=== PATIENT | male | born 2000 | race Caucasian/White ===

== ENCOUNTER 2024-10-31 19:42 | Emergency (ER) | payer OTHER, SELFPAY ==
[2024-10-31] VITALS (8 sets, daily range): BP systolic 107–134; BP diastolic 63–83; PULSE 78–128; RESP 16–23; TEMP 36.4–37.3; O2SAT 96–98; BMI 27.6
--- NOTE | 2024-10-31 19:46 | EX.ED.DYSGE1 ---
HPI History of Present Illness Chief Complaint: Seizure PFSH PFS Medical History no medical history Home Medications ?Medication ?Instructions ?Recorded ?Last Taken ?Type levetiracetam 500 mg tablet 500 mg PO BID #60 tabs 10/31/24 Unknown Rx (Keppra) Allergy/AdvReac Type Severity Reaction Status Date / Time No Known Allergies Allergy Verified 10/31/24 19:48 Family History no significant family his Surgical History no surgical history Social History Smoking Status: Never smoker EXAM Physical Exam Const Vital Signs: 10/31/24 19:44 10/31/24 20:08 10/31/24 21:00 Temperature 99.2 F H Temperature Source Oral Pulse Rate 128 H 125 H 119 H Respiratory Rate 20 H 18 23 H Blood Pressure 134/81 H 120/83 H 130/82 H Blood Pressure Mean 98 95 98 Pulse Ox 97 97 97 Oxygen Delivery Method Room Air Room Air Room Air 10/31/24 21:18 10/31/24 22:00 Temperature 97.5 F L Temperature Source Oral Pulse Rate 113 H Respiratory Rate 22 H Blood Pressure 125/80 H Blood Pressure Mean 95 Pulse Ox 98 Oxygen Delivery Method Room Air MDM MDM MDM Narrative Medical decision making narrative: HISTORY OF PRESENT ILLNESS: Chief complaint: Seizure 24-year-old male with no past medical history presents with concern for new onset seizure. Notes 3-5 minute history of seizure. He has no personal history of seizures. He noted he bit his tongue did not wet his pants. He was laying down when he started seizing. He was witnessed by his mother. She states the patient activity was similar to to another family member with seizures. The patient denies recent head trauma. Denies recent vomiting or diarrhea. Denies recent fever, neck stiffness or headache. Denies focal numbness weakness or loss of sensation. REVIEW OF SYSTEMS: Pertinent positives: Seizure Pertinent negatives: Fever, neck stiffness, vomiting, diarrhea, focal neurologic deficit PHYSICAL EXAM: Nursing triage notes reviewed, Vital signs reviewed Constitutional: please see mdm HENT: MMM, right lateral tongue biting noted Eyes: Pupils equal round and reactive to light, Extraocular muscles intact Neck: No stridor, no JVD, full neck ROM Lungs: Clear to auscultation, No wheezing or rales. No increased work of breathing, no conversational dyspnea, no accessory muscle use, no nasal flaring. No respiratory distress noted Heart: Regular rate and rhythm, No murmurs, No rubs and No gallops, 2+ distal pulses (radial, femoral, posterior tibial) in all extremities Abdomen: Soft, there is no tenderness, rigidity, rebound or guarding, no obvious peritoneal signs, no palpable pulsatile abdominal masses, no auscultated abdominal bruit : No CVAT Extremities: No edema Neuro: Alert, oriented x 3, no obvious cranial nerve deficits, no extremity ataxia, intact sensation and strength in bilateral upper and lower extremities. Skin: No rash or lesions noted MEDICAL DECISION MAKING: Chief Complaint: please see HPI External records reviewed: No prior imaging studies Factors affecting care: No personal history, family history of seizures Social determinants of health: n denies drug use History obtained from others: family Consults: Internal Medicine (Dr. Matthews) [facility] Narrative: The patient was initially tachycardic, afebrile and nontoxic-appearing. Nasal neurologic exam was intact. The patient did not appear postictal. There was tongue biting noted. I considered the following differential diagnosis: Seizure, hyponatremia, hypoglycemia, meningitis The patient's history and physical exam are consistent with bilateral meningitis. No meningeal signs. Nontoxic-appearing. No severe neck stiffness or headache. ALL IMAGES (IF OBTAINED) HAVE BEEN PERSONALLY REVIEWED AND INTERPRETED BY MYSELF. I have personally reviewed the patient's chest x-ray. Chest x-ray is unremarkable for pulmonary edema, pneumothorax, pneumonia or focal cardiopulmonary abnormality. EKG with sinus tach heart rate 113, normal axis, normal intervals, no STEMI CMP with severe hypokalemia (hemolyzed), noted anion gap metabolic acidosis likely associated with elevated lactate in the setting of new onset seizure Urinalysis shows no evidence of urinary inflammation suggestive of UTI CBC without leukocytosis, severe anemia, no thrombocytopenia. Urinalysis shows no evidence of urinary inflammation suggestive of UTI CT scan of the brain shows no evidence of ICH or mass Lactate elevated consistent with endorgan hypoperfusion likely secondary to seizure. Magnesium slightly elevated The synthesis of the patient history, physical exam, labs image suggest likely new onset seizure. The patient received a dose of IV Keppra here. Potassium was repleted with 60 mEq oral potassium and 20 mEq of IV potassium. Shared decision-making discussion was undertaken with the patient we do not have EEG available here at [facility] for the weekend given lack of resources patient will need to be transferred to a larger institution that was a better resourced. After discussing transfer the patient and family were both alert and oriented and had capacity to make her medical decisions chose to forego admission/transfer at this time and lieu of starting antiepileptic therapy with Keppra and close outpatient follow-up. Patient was signed out to p.m. physician pending potassium infusion, Keppra infusion and discharge. Keppra was written to [facility] pharmacy for meds to beds. The patient and/or family, caregivers express understanding. The patient and/or family, caregivers agrees with the plan. Shared decision making: I will have a discussion with the patient and or visitors regarding risk/benefits of further testing or admission. They will be made aware of of the risk/benefits inherent in this decision they will be given the opportunity to voice understanding. Total critical care time today provided was at least 0 minutes. This excludes separately billable procedures. Critical care time (if documented) is secondary to the patient having high probability of clinically significant/life threatening deterioration in the patient's condition which required my urgent intervention. Impression: 1. New onset seizure 2. Tachycardia 3. Hypokalemia Dispo: Admit to medicine This note was generated with [employer] dictation software. It may contain incorrect words, spelling, and punctuation that were not noted in review of the chart prior to signing. Lab Data Labs: Laboratory Results - last 24 hr 10/31/24 10/31/24 10/31/24 19:45 20:20 20:23 WBC 10.1 RBC 5.86 Hgb 17.1 H Hct 48.8 MCV 83.3 MCH 29.2 MCHC 35.0 RDW Std Deviation 39.6 RDW Coeff of Indira 13.3 Plt Count 362 MPV 9.9 Immature Gran % (Auto) 0.600 Neut % (Auto) 57.9 Lymph % (Auto) 29.3 Garrett % (Auto) 10.2 H Eos % (Auto) 1.0 Baso % (Auto) 1.0 Absolute Neuts (auto) 5.8 Absolute Lymphs (auto) 2.95 Nucleated RBC % 0 Sodium 139 Potassium 3.0 L Chloride 100 Carbon Dioxide 18.2 L Anion Gap 21 H BUN 17 Creatinine 1.06 Estim Creat Clear Calc 106.39 Est GFR (MDRD) Non-Af 101 BUN/Creatinine Ratio 15.8 Glucose 91 Lactic Acid 2.5 H* Calcium 9.8 Magnesium 2.7 H Total Bilirubin 0.65 AST 37 ALT 55 H Alkaline Phosphatase 74 Total Protein 8.0 Albumin 4.9 Globulin 3.0 Albumin/Globulin Ratio 1.6 Urine Color Urine Clarity Urine pH Ur Specific [place] Urine Protein Urine Glucose (UA) Urine Ketones Urine Occult Blood Urine Nitrite Urine Bilirubin Urine Urobilinogen Ur Leukocyte Esterase Urine RBC Urine WBC Ur Squamous Epith Cells Urine Bacteria Urine Mucus 10/31/24 20:45 WBC RBC Hgb Hct MCV MCH MCHC RDW Std Deviation RDW Coeff of Indira Plt Count MPV Immature Gran % (Auto) Neut % (Auto) Lymph % (Auto) Garrett % (Auto) Eos % (Auto) Baso % (Auto) Absolute Neuts (auto) Absolute Lymphs (auto) Nucleated RBC % Sodium Potassium Chloride Carbon Dioxide Anion Gap BUN Creatinine Estim Creat Clear Calc Est GFR (MDRD) Non-Af BUN/Creatinine Ratio Glucose Lactic Acid Calcium Magnesium Total Bilirubin AST ALT Alkaline Phosphatase Total Protein Albumin Globulin Albumin/Globulin Ratio Urine Color Straw Urine Clarity Clear Urine pH 6.0 Ur Specific [place] 1.020 Urine Protein 15 H Urine Glucose (UA) 250 H Urine Ketones Negative Urine Occult Blood Negative Urine Nitrite Negative Urine Bilirubin Negative Urine Urobilinogen Normal Ur Leukocyte Esterase Negative Urine RBC 0-5 SEEN Urine WBC 0-5 SEEN Ur Squamous Epith Cells 0-5 SEEN Urine Bacteria 0 SEEN Urine Mucus 0 SEEN Radiography Diagnostic Testing: Clinical Impression(s) from Imaging Studies Brain CT 10/31/24 20:25 IMPRESSION: No acute intracranial hemorrhage, midline shift or mass effect. If symptoms persist, further evaluation with MRI is recommended. Reading Location: [id number] Chest X-Ray 10/31/24 20:30 IMPRESSION: No acute cardiopulmonary abnormality. Reading Location: [id number] Discharge Plan Triage Chief Complaint: Seizure ED Provider: Brock Murillo Dx/Rx/DC Orders Clinical Impression: New onset seizure Instructions: ED Seizure New [facility] Adult Prescriptions: New levetiracetam [Keppra] 500 mg tablet 500 mg PO BID Qty: 60 3RF Primary Care Provider: Care Physician,No Primary Referrals: Fabian Jung MD [Non-Staff -Ordering Privileges] - Activity Restrictions/Additional Instructions: Thank you for trusting us with your care today! Your presentation is likely secondary to a new onset seizure. Please take Keppra as prescribed. Please not drive, operate heavy machinery, swim or climb as a seizure during these activities can be fatal. Please take Tylenol (2 pills, 650 mg), ibuprofen (2 pills, 400 mg) every 6 hours as needed for pain and fever control. Please return to the emergency department if your symptoms change or worsen. Specifically if you have a seizure lasting greater than 5 minutes or if you have multiple seizures without return to your neurologic baseline (awake, alert, oriented to person place and time) Please follow with Neurology for further outpatient evaluation and management. Print Language: Andorran Disposition Disposition: Home, Self Care
--- NOTE | 2024-10-31 20:16 | EKG12_ITS ---
Test Reason : DYSRHYTHMIA Blood Pressure : */* mmHG Vent. Rate : 113 BPM Atrial Rate : 113 BPM P-R Int : 148 ms QRS Dur : 86 ms QT Int : 334 ms P-R-T Axes : 44 30 21 degrees QTcB Int : 458 ms Sinus tachycardia Otherwise normal ECG Confirmed by PHOEBE DUBOSE, MATT ([id number]), primer expeditor and drier ISABEL HILL ([id number]) on 11/03/2024 8:50:48 AM Referred By: Confirmed By: MATT SANDHU MD
[2024-10-31] MEDS: 0.9% Normal Saline (1000mL) 1,000 ML 1000 ML IV (20:24)
--- NOTE | 2024-10-31 20:25 | CT_ITS ---
EXAM: CT Head Without Intravenous Contrast CLINICAL INDICATION: SEIZURE TECHNIQUE: Axial computed tomography images of the head/brain without intravenous contrast. This CT exam was performed using one or more of the following dose reduction techniques: automated exposure control, adjustment of the mA and/or kV according to patient size, and/or use of iterative reconstruction technique. COMPARISON: No relevant prior studies available. FINDINGS: BRAIN AND EXTRA-AXIAL SPACES: No acute intracranial hemorrhage, midline shift or mass effect. If symptoms persist, further evaluation with MRI is recommended. No significant white matter disease. BONES/JOINTS: Unremarkable. No acute fracture. SOFT TISSUES: Unremarkable. SINUSES: Unremarkable as visualized. No acute sinusitis. MASTOID AIR CELLS: Unremarkable as visualized. No mastoid effusion. CT/Brain/Head without Contrast IMPRESSION: No acute intracranial hemorrhage, midline shift or mass effect. If symptoms per sist, further evaluation with MRI is recommended. Reading Location: [id number]
--- NOTE | 2024-10-31 20:30 | RAD_ITS ---
PROCEDURE: CHEST 1 VIEW (PORTABLE) 10/31/2024 REASON FOR EXAM: SEIZURE RULE OUT PNEUMONIA TECHNIQUE: Frontal view of the chest. COMPARISON: None FINDINGS: Heart: The heart size is normal. Lungs: The lungs are clear. No pleural effusion. Bones: The bones are unremarkable. RAD/Chest 1 View (Portable) IMPRESSION: No acute cardiopulmonary abnormality. Reading Location: [id number]
[2024-10-31 20:47] LABS: ALB/GLOB Ratio 1.6 RATIO (0.9-2.4); AST(SGOT) 37 U/L (<=37); Alanine Aminotransfer ALT/SGPT 55 U/L (<=46); Albumin, Serum 4.9 g/dL (3.5-5.0); Alkaline Phosphatase 74 U/L (40-129); Anion Gap 21 (5-15); BUN 17 mg/dL (4-19); BUN/Creat Ratio 15.8 RATIO (10-20); Calcium,Total 9.8 mg/dL (7.6-11.0); Carbon Dioxide 18.2 mmol/L (21.0-32.0); Chloride 100 mmol/L (98-108); Creatinine, Serum 1.06 mg/dL (0.70-1.20); EST Glomerular Filtration Rate 101 (>60); Estimated Creatinine Clearance 106.39 ml/min (50-250); Glucose 91 mg/dL (70-99); Sodium Level 139 mmol/L (133-145); Total Bilirubin 0.65 mg/dL (0.00-1.30)
[2024-10-31 20:55] LABS: Bacteria 0 SEEN /hpf (None Seen); Mucous, Urine 0 SEEN /hpf (<or=2+)
[2024-10-31 20:57] LABS: Color, Urine Straw (Yellow); Glucose, Dipstick 250 mg/dl (Normal); Ketone-Dipstick Negative (Negative); Leukocyte Esterase-Dipstick Negative /ul (Negative); Nitrite-Dipstick Negative (Negative); Occult Blood-Urine Negative /ul (Negative); Protein-Dipstick 15 mg/dl (Negative); Urine Bilirubin Dipstick Negative (Negative); Urine Clarity Clear (Clear); Urine Urobilinogen Normal (Normal)
[2024-10-31 21:04] LABS: Lactic Acid 2.5 mmol/L (0.0-2.0)
[2024-10-31] MEDS: Potassium Chloride Oral Tablet 20 MEQ 60 MEQ PO (21:18)
[2024-10-31 21:21] LABS: Red Blood Cells-Urine 0-5 SEEN /hpf (0-5); White Blood Cells 0-5 SEEN /hpf (0-5)
[2024-10-31 21:22] LABS: Squamous Epithelial Cells - UA 0-5 SEEN /hpf (0-5)
[2024-10-31 22:07] LABS: Absolute Lymphocyte Count 2.95 X10^3/uL (0.83-4.51); Absolute Neutrophil Count 5.8 X10^3/uL (2.0-7.7); Hematocrit 48.8 % (40-54); Hemoglobin 17.1 g/dL (13.0-16.5); Lymphocyte # 2.95 X10^3/ul (0.83-4.51); Lymphocyte % 29.3 % (19-41); Mean Corpuscular Hgb 29.2 pg (27.0-32.0); Mean Corpuscular Volume 83.3 fL (80-94); Mean Platelet Vol. 9.9 fl (6.2-12.0); Monocyte# 1.03 X10^3/uL; Monocyte% 10.2 % (0-10); NRBC Flagged by Analyzer 0 % (0-5); Neutrophil # 5.83 X10^3/uL (2.7-7.7); Neutrophil % 57.9 % (47-70); Platelet Count 362 K/mm3 (150-450); RBC Distribution Width CV 13.3 % (11.6-14.6); RBC Distribution Width SD 39.6 fl (35.1-43.9); Red Blood Count 5.86 M/mm3 (4.6-6.2); White Blood Count 10.1 K/mm3 (4.4-11.0)
[2024-10-31] MEDS: levETIRAcetam IV 1,000 MG/100 ML BAG 400 MG IV (22:40)
[2024-10-31 22:48] LABS: Magnesium 2.7 mg/dL (1.5-2.2)
[2024-10-31] MEDS: Potassium Chloride 10mEq/100mL 10 MEQ/100 ML IV.SOLN. 100 MEQ IV BOLUS (23:00)
[2024-11-01] MEDS: Potassium Chloride 10mEq/100mL 10 MEQ/100 ML IV.SOLN. 100 MEQ IV BOLUS (00:02)
[2024-11-01 01:00] VITALS: BP 106/61; PULSE 77; RESP 18; O2SAT 95
== END 2024-11-01 01:21 | disposition home or self-care (01) ==
PROVIDERS: Emergency Provider Emergency Medicine; Visit Provider Emergency Medicine
DX: R56.9 Unspecified convulsions (principal); R00.0 Tachycardia, unspecified; E87.6 Hypokalemia; E83.41 Hypermagnesemia; E87.20 Acidosis, unspecified
CPT/HCPCS: 70450; 71045; 80048; 80053; 81001; 83605; 83735; 85025; 93005; 96361; 96365; 96366; 96367; 99285; A4216

== ENCOUNTER → 2024-12-24 | Outpatient (CLI) | payer OTHER, SELFPAY ==
[2024-12-24 13:48] LABS: AST(SGOT) 30 U/L (<=37); Alanine Aminotransfer ALT/SGPT 29 U/L (<=46); Albumin, Serum 4.4 g/dL (3.5-5.0); Alkaline Phosphatase 64 U/L (40-129); Anion Gap 12 (5-15); BUN 12 mg/dL (4-19); BUN/Creat Ratio 12.3 RATIO (10-20); Calcium,Total 9.3 mg/dL (7.6-11.0); Carbon Dioxide 23.4 mmol/L (21.0-32.0); Chloride 103 mmol/L (98-108); Globulin 2.8 g/dL (2.2-4.2); Glucose 86 mg/dL (70-99); Magnesium 2.3 mg/dL (1.5-2.2); Potassium 3.9 mmol/L (3.3-5.1)
== END | disposition home or self-care (01) ==
LOC: MTLAB 09:31
PROVIDERS: Referring Provider Psychiatry & Neurology Neurology; Visit Provider Psychiatry & Neurology Neurology
DX: G40.909 Epilepsy, unspecified, not intractable, without status epilepticus (principal)
CPT/HCPCS: 36415; 80053; 83735

== ENCOUNTER → 2025-01-05 | Outpatient (CLI) | payer OTHER, SELFPAY | END | disposition home or self-care (01) | PROVIDERS: Referring Provider Psychiatry & Neurology Neurology; Visit Provider Psychiatry & Neurology Neurology | DX: G40.909 Epilepsy, unspecified, not intractable, without status epilepticus (principal) | CPT/HCPCS: 95819 ==

== ENCOUNTER → 2025-02-02 | Outpatient (CLI) | payer SELFPAY, OTHER ==
--- NOTE | 2025-02-02 07:05 | MRI_ITS ---
PROCEDURE: BRAIN W/WO CONTRAST 02/02/2025 REASON FOR EXAM: EPILEPSY TECHNIQUE: BRAIN W/WO CONTRAST Multiplanar and multisequence images were obtained. CONTRAST: Clariscan VOLUME: 15 mL COMPARISON: CT head without contrast, 10/31/2024. FINDINGS: There is apparent mild mesial temporal sclerosis, on the right. There is no abnormal intracranial contrast enhancement. There is a normal sulcal pattern and gyral configuration. There is no evidence of acute intracranial hemorrhage or infarction. The weems-white differentiation is well preserved. There is no evidence of restricted diffusion. The ventricles and basilar cisterns are normal. There are normal flow voids demonstrated in the recognized intracranial vessels. The cerebellum and brainstem are unremarkable. The cerebellar pontine angles are normal. The craniovertebral junction is normal. The sella and suprasellar regions are normal. The orbits and retro-orbital regions are unremarkable. There is nasal septal deviation to the right. There is no significant paranasal sinus disease. The mastoid air cells are clear. There is normal bone marrow signal in the skull base and calvarium. MRI/Brain W/WO Contrast IMPRESSION: 1. There is apparent mild mesial temporal sclerosis, on the right. 2. MR imaging of the brain is otherwise unremarkable. Reading Location: [id number]
--- OUTSIDE RECORDS SUMMARY | 2025-02-02 07:10 | XMS RPT_ITS | CCD ---
Author Organization [facility] Care Team Providers Care Knock Up Assembler Name Role Phone Dr. Brock Murillo DO Emergency Provider [phone] Care Physician, No Primary Primary Care Provider Unavailable Dr. Brock Murillo DO Attending Provider [phone] Care Physician, No Primary Referring Provider Un available Erich DUBOSE, Dr. Peralta Attending Provider Erich DUBOSE, Dr. Peralta Referring Provider Fabian Jung Attending Unavailable Care Physician, No Primary Primary Care Unava ilable Care Physician, No Primary Referring Unava ilable Fabian Jung Attending Unavailable Fabian Jung Referring Unavailable Care Physician, No Primary Primary Care Unava ilable Brock Murillo Attending Unavailable Care Physician, No Primary Primary Care Unava ilable Fabian Jung Attending Unavailable Fabian Jung Referring Unavailable Care Physician, No Primary Primary Care Unava ilable Fabian Jung Attending Unavailable Fabian Jung Referring Unavailable Care Physician, No Primary Primary Care Unava ilable Medications Current Medications Medication Drug Class(es) Dates Sig (Normalized) Sig (Original) levETIRAcetam 500 mg oral tablet (7 sources) Start: 10-31-2024 End: 12-24-2024 take 1 tablet by mouth twice daily Levetiracetam (Keppra) 500 mg tablet Active 500 mg PO TWICE A DAY 60 4 December 24, 2024 9:16am Problems Problem Classification Problem Date Documented Da te Episodic/Chronic Epilepsy; convulsions (11 sources) Epilepsy; Translations: [Epilepsy, unspecified, not intractable, without status epilepticus] Onset: 01-12-2025 12-24-2024 Chronic Epilepsy; convulsions (5 sources) Seizure; Translations: [Unspecified convulsions] Onset: 11-06-2024 10-31-2024 Episodic Results Test Name Value Interpretation Reference Range Facility Anion gap in Serum or Plasma Ordered By: Fabian Jung on 12-24-2024 Anion gap [Moles/Vol] 12 mmol/L 5-15 [facility] BUN/creatinine ratioOrdered By: Fabian Jung on 12-24-2024 Urea nitrogen/Creatinine [Mass ratio] 12.3 mg/mg 10-20 [facility] Bilirubin, totalOrdered By: Fabian Jung on 12-24-2024 Bilirubin [Mass/Vol] 0.94 mg/dL 0.00-1.30 [facility] Carbon dioxide, total [Moles /volume] in Central venous bloodOrdered By: Fabian Jung on 12-24-2024 CO2 [Moles/Vol] 23.4 mmol/L 21.0-32.0 [facility] Chloride assayOrdered By: Ra brando Jung on 12-24-2024 Chloride [Moles/Vol] 103 mmol/L 98-108 [facility] Comprehensive Metabolic Prof ilon 12-24-2024 Albumin [Mass/Vol] 4.4 g/dL Normal 3.5-5.0 [facility] Comment on above: Performed By: #### L 501.5200, L500.4050 #### [facility] [address] [place], [address] Albumin/Globulin [Mass ratio] 1.6 {ratio} Normal 0.9-2.4 [facility] Comment on above: Performed By: #### L 501.5200, L500.4050 #### [facility] [address] [place], [address] ALK PHOS 64 U/L Normal 40-129 [facility] Comment on above: Performed By: #### L 501.5200, L500.4050 #### [facility] [address] [place], [address] ALT [Catalytic activity/Vol] 29 U/L Normal <=46 [facility] Comment on above: Performed By: #### L 501.5200, L500.4050 #### [facility] [address] [place], [address] AST [Catalytic activity/Vol] 30 U/L Normal <=37 [facility] Comment on above: Performed By: #### L 501.5200, L500.4050 #### [facility] [address] [place], [address] Bilirubin [Mass/Vol] 0.94 mg/dL Normal 0.00-1.30 [facility] Comment on above: Performed By: #### L 501.5200, L500.4050 #### [facility] [address] [place], [address] BUN/CRE 12.3 RATIO Normal 10-20 [facility] Comment on above: Performed By: #### L 501.5200, L500.4050 #### [facility] [address] [place], [address] Calcium [Mass/Vol] 9.3 mg/dL Normal 7.6-11.0 [facility] Comment on above: Performed By: #### L 501.5200, L500.4050 #### [facility] [address] [place], [address] Chloride [Moles/Vol] 103 mmol/L Normal 98-108 [facility] Comment on above: Performed By: #### L 501.5200, L500.4050 #### [facility] [address] [place], [address] CO2 [Moles/Vol] 23.4 mmol/L Normal 21.0-32.0 [facility] Comment on above: Performed By: #### L 501.5200, L500.4050 #### [facility] [address] [place], [address] Creatinine [Mass/Vol] 1.01 mg/dL Normal 0.70-1.20 [facility] Comment on above: Performed By: #### L 501.5200, L500.4050 #### [facility] [address] [place], [address] GAP 12 Normal 5-15 [facility] Comment on above: Performed By: #### L 501.5200, L500.4050 #### [facility] [address] [place], [address] GFR/1.73 sq M.predicted among non-blacks MDRD (S/P/Bld) [Vol rate/Area] 107 mL/min/{1.73_m2} Normal >60 [facility] Comment on above: Result Comment: mL/m in/1.73m2 CKD-EPI Creatinine Equation (2020) Performed By: #### L 501.5200, L500.4050 #### [facility] [address] [place], [address] Globulin (S) [Mass/Vol] 2.8 g/dL Normal 2.2-4.2 [facility] Comment on above: Performed By: #### L 501.5200, L500.4050 #### [facility] [address] [place], [address] Glucose [Mass/Vol] 86 mg/dL Normal 70-99 [facility] Comment on above: Performed By: #### L 501.5200, L500.4050 #### [facility] [address] [place], [address] Potassium [Moles/Vol] 3.9 mmol/L Normal 3.3-5.1 [facility] Comment on above: Performed By: #### L 501.5200, L500.4050 #### [facility] [address] [place], [address] Sodium [Moles/Vol] 139 mmol/L Normal 133-145 [facility] Comment on above: Performed By: #### L 501.5200, L500.4050 #### [facility] [address] [place], [address] T PROT 7.2 g/dL Normal 5.9-8.4 [facility] Comment on above: Performed By: #### L 501.5200, L500.4050 #### [facility] [address] [place], [address] Urea nitrogen [Mass/Vol] 12 mg/dL Normal 4-19 [facility] Comment on above: Performed By: #### L 501.5200, L500.4050 #### [facility] [address] [place], [address] Glomerular filtration rate ( GFR) estimation/1.73 sq m using serum, plasma, or whole bOrdered By: Fabian Jung on 12-24-2024 GFR/1.73 sq M.predicted among non-blacks MDRD (S/P/Bld) [Vol rate/Area] 107 mL/min/{1.73_m2} >60 [facility] Comment on above: mL/min/1.73m2 CKD-EP I Creatinine Equation (2020) Laboratory - Chemistry and C hemistry - challengeOrdered By: Fabian Jung on 12-24-2024 AST [Catalytic activity/Vol] 30 U/L <38 [facility] Magnesiumon 12-24-2024 Magnesium [Mass/Vol] 2.3 mg/dL High 1.5-2.2 [facility] Comment on above: Performed By: #### L 501.5200, L500.4050 ####[facility] [address] [place], [address] Magnesium measurement (mass/ volume)Ordered By: Fabian Jung on 12-24-2024 Magnesium (Unsp spec) [Mass/Vol] 2.3 mg/dL High 1.5-2.2 [facility] Neurology Visit Reporton Neurology Visit Report [facility] [address], [address] [place] [address] OFFICE VISIT Date of Service: 12/24/24 MR#: [id number] Acct: [id number] Name: MALVIN DOUGLAS Rep #: [id number] : 2000 Provider: Dr. Fabian aguero MD Age/Sex: 24/M Location: [facility]. Status: Signed HPI HPI Chief Complaint: Establish Care Details: History: The patient is a 24-year-old right-handed male without significant past medical history who presents for evaluation of a seizure. He is accompanied by his mother. On 10/31/2024 he had a witnessed generalized clonic seizure. He was sitting when the seizure began. He then noted that he was unable to talk and felt that his eyes were twitching and he felt his arms began to contract and shake. He then lost consciousness and exhibited generalized clonic activity lasting about 2 minutes. He then had postictal confusion and lethargy. He had associated tongue biting. He did not have associated urinary incontinence. He denied having associated headache, chest pain, or shortness of breath. He had mowed the lawn earlier that day and was tired and may have been dehydrated. He was not sleep deprived from the night prior. He did not have any febrile illness at that time. He does not have any history of seizure prior to October 2024 and has had no further seizures since the seizure on 10/31/2024. He was seen in the emergency room. His potassium level was low and his magnesium level was high at the time of his hospital evaluation. Levetiracetam 500 mg twice daily was initiated. He is tolerating this well. He does not have any history of [employer] infection, concussion or significant history. Past Medical History: As above. There is no history of hypertension, diabetes mellitus, heart disease, lung disease, stroke, seizure, thyroid disease, cancer, renal disease, sleep apnea, or hyperlipidemia. Social History: He infrequently smoked tobacco (greater than 1 year ago. There is no history of alcohol abuse. There is no history of illicit drug use. Family History: 2 of the patient's 4 brothers have seizures. The patient's only sister has seizures. There is no family history of cerebral aneurysm or stroke. Review of Systems: As above. The patient has not had any recent fever, rash, weight change, chest pain, shortness of breath, or gastrointestinal problems. He has urinary frequency during the day and occasional nocturnal enuresis. Physical Exam: General: Well-developed, well-nourished male in no acute distress. Neuro: The patient is awake and alert and responds appropriately; speech is fluent; language function is within normal limits Cranial nerves: PERRL, 3mm bilaterally; EOMI; visual joshi are full; visual acuity is 20/20 bilaterally; face is symmetrical; tongue is midline Cerebellar system: No nystagmus or dysmetria Deep tendon reflexes: +1 at the knees and ankles and absent at the biceps bilaterally, triceps bilaterally and brachioradialis bilaterally; plantar responses are downward bilaterally Motor: Strength 5/5 in the biceps bilaterally, abductor pollicis brevis muscles bilaterally, first dorsal interosseous muscles bilaterally, quadriceps bilaterally and foot dorsiflexors bilaterally; no drift Sensory: There are no deficits to soft touch or vibration Gait: Unremarkable HEENT: Normocephalic; atraumatic; tympanic membranes are clear Neck: No bruits Heart: Regular rhythm and rate Extremities: No cyanosis or edema; dorsalis pedis pulses are +2 bilaterally Supplemental Info CBC, magnesium, lactic acid, CMP (10/31/2024): Hemoglobin 17.1 (high), potassium 3.0 (low), bicarb 18.2 (low), lactic acid 2.5 (high), magnesium 2.7 (high), ALT 55 (high) Head CT (10/31/2024): FINDINGS: BRAIN AND EXTRA-AXIAL SPACES: No acute intracranial hemorrhage, midline shift or mass effect. If symptoms persist, further evaluation with MRI is recommended. No significant white matter disease. BONES/JOINTS: Unremarkable. No acute fracture. SOFT TISSUES: Unremarkable. SINUSES: Unremarkable as visualized. No acute sinusitis. MASTOID AIR CELLS: Unremarkable as visualized. No mastoid effusion. IMPRESSION: No acute intracranial hemorrhage, midline shift or mass effect. If symptoms persist, further evaluation with MRI is recommended. These images were reviewed on 12/24/2024. Chest x-ray (10/31/2024): No acute cardiopulmonary abnormality. EKG (10/31/2024): Sinus tachycardia (ventricular rate 113 bpm). Otherwise normal EKG. Assessment and Plan Assessment and Plan (1) Seizure disorder: Plan: The patient had a single generalized clonic seizure of focal onset on 10/31/2024. He does not have any history of prior seizure. He has had no further seizures since his seizure on 10/31/2024. He was fatigued and may have been dehydrated just prior to the seizure. He was seen in the emergency room. His head CT was normal. His (more content not included)... Normal [facility] Potassium measurement (mass/ volume)Ordered By: Fabian Jung on 12-24-2024 Potassium (Unsp spec) [Mass/Vol] 3.9 mmol/L 3.3-5.1 [facility] Serum creatinine measurement (mass/volume)Ordered By: Fabian Jung on 12-24-2024 Creatinine [Mass/Vol] 1.01 mg/dL 0.70-1.20 [facility] Serum globulin measurementOr dered By: Fabian Jung on 12-24-2024 Globulin (S) [Mass/Vol] 2.8 g/dL 2.2-4.2 [facility] Serum glucose measurement (m ass/volume)Ordered By: Fabian Jung on 12-24-2024 Glucose [Mass/Vol] 86 mg/dL 70-99 [facility] Serum or plasma alanine dean otransferase (ALT) measurementOrdered By: Fabian Jung on 12-24-2024 ALT [Catalytic activity/Vol] 29 U/L <47 [facility] Serum or plasma albumin prabha urement (mass/volume)Ordered By: Fabian Jung on 12-24-2024 Albumin [Mass/Vol] 4.4 g/dL 3.5-5.0 [facility] Serum or plasma albumin/glob ulin mass ratioOrdered By: Fabian Jung on 12-24-2024 Albumin/Globulin [Mass ratio] 1.6 {ratio} 0.9-2.4 [facility] Serum or plasma alkaline shannon sphatase measurementOrdered By: Fabian Jung on 12-24-2024 ALP [Catalytic activity/Vol] 64 U/L 40-129 [facility] Serum or plasma calcium prabha urement (mass/volume)Ordered By: Fabian Jung on 12-24-2024 Calcium [Mass/Vol] 9.3 mg/dL 7.6-11.0 [facility] Serum or plasma urea nitroge n measurement (mass/volume)Ordered By: Fabian Patelblas on 12-24-2024 Urea nitrogen [Mass/Vol] 12 mg/dL 4-19 [facility] Sodium levelOrdered By: Pool Patelblas on 12-24-2024 Sodium [Moles/Vol] 139 mmol/L 133-145 [facility] Total proteinOrdered By: Wally argueta Erich on 12-24-2024 Protein [Mass/Vol] 7.2 g/dL 5.9-8.4 [facility] 12 Lead EKGon 10-31-2024 12 Lead EKG [facility] [address] [place] [address] 12 Lead EKG 10/31/242039 MR#: [id number] Acct: [id number] Name: MALVIN DOUGLAS Rep #: [id number] : 2000 24 From: Oscar Farias MD Attending Dr: Status: DEP ER Ordering Dr: Brock Murillo DO Date: 10/31/24 Location: ED Sex: M C Admitted: Test Reason : DYSRHYTHMIA Blood Pressure : */* mmHG Vent. Rate : 113 BPM Atrial Rate : 113 BPM P-R Int : 148 ms QRS Dur : 86 ms QT Int : 334 ms P-R-T Axes : 44 30 21 degrees QTcB Int : 458 ms Sinus tachycardia Otherwise normal ECG Confirmed by OSCAR FARIAS MD ([id number]), script editor ISABEL HILL ([id number]) on 11/03/2024 8:50:48 AM Referred By: Confirmed By: OSCAR FARIAS MD 11/03/24 0850 Date Oscar Farias MD CC: Dr. Brock Murillo, DO; No Primary Care Physician Signed Normal [facility] Absolute lymphocyte countOrd ered By: Brock Murillo on 10-31-2024 Lymphocytes Auto (Unsp spec) [#/Vol] 2.95 10*3/uL 0.83-4.51 [facility] Absolute neutrophil countOrd ered By: Brock Murillo on 10-31-2024 Neutrophils (Bld) [#/Vol] 5.8 10*3/uL 2.0-7.7 [facility] Anion gap in Serum or Plasma Ordered By: Brock Murillo on 10-31-2024 Anion gap [Moles/Vol] 21 mmol/L High 5- [facility] Automated lymphocyte count a s percentage of total leukocytesOrdered By: Brock Murillo on 10-31-2024 Lymphocytes/100 WBC Auto (Unsp spec) 29.3 % - [facility] BUN/creatinine ratioOrdered By: Brock Murillo on 10-31-2024 Urea nitrogen/Creatinine [Mass ratio] 15.8 mg/mg - [facility] Basic Metabolic Profile (BMP )on 10-31-2024 BUN/CRE 15.8 RATIO Normal - [facility] Comment on above: Performed By: #### L 500.4050, L500.2500, L503.6005 #### [facility] [address] [place], [address] Calcium [Mass/Vol] 9.8 mg/dL Normal 7.6-11.0 [facility] Comment on above: Performed By: #### L 500.4050, L500.2500, L503.6005 #### [facility] [address] [place], [address] Chloride [Moles/Vol] 100 mmol/L Normal 98-108 [facility] Comment on above: Performed By: #### L 500.4050, L500.2500, L503.6005 #### [facility] [address] [place], [address] CO2 [Moles/Vol] 18.2 mmol/L Low 21.0-32.0 [facility] Comment on above: Performed By: #### L 500.4050, L500.2500, L503.6005 #### [facility] [address] [place], [address] Creatinine [Mass/Vol] 1.06 mg/dL Normal 0.70-1.20 [facility] Comment on above: Performed By: #### L 500.4050, L500.2500, L503.6005 #### [facility] [address] [place], [address] ECRCL 106.39 ml/min Normal 50-250 [facility] Comment on above: Performed By: #### L 500.4050, L500.2500, L503.6005 #### [facility] [address] [place], [address] GAP 21 High 5-15 [facility] Comment on above: Performed By: #### L 500.4050, L500.2500, L503.6005 #### [facility] [address] [place], [address] GFR/1.73 sq M.predicted among non-blacks MDRD (S/P/Bld) [Vol rate/Area] 101 mL/min/{1.73_m2} Normal >60 [facility] Comment on above: Result Comment: mL/m in/1.73m2 CKD-EPI Creatinine Equation (2020) Performed By: #### L 500.4050, L500.2500, L503.6005 #### [facility] [address] [place], [address] Glucose [Mass/Vol] 91 mg/dL Normal 70-99 [facility] Comment on above: Performed By: #### L 500.4050, L500.2500, L503.6005 #### [facility] [address] [place], [address] Potassium [Moles/Vol] 3.0 mmol/L Low 3.3-5.1 [facility] Comment on above: Result Comment: Hemo lysis present, Results??could be affected. ?? Performed By: #### L 500.4050, L500.2500, L503.6005 #### [facility] [address] [place], [address] Sodium [Moles/Vol] 139 mmol/L Normal 133-145 [facility] Comment on above: Performed By: #### L 500.4050, L500.2500, L503.6005 #### [facility] [address] [place], [address] Urea nitrogen [Mass/Vol] 17 mg/dL Normal 4-19 [facility] Comment on above: Performed By: #### L 500.4050, L500.2500, L503.6005 #### [facility] [address] [place], [address] Basophil percentageOrdered B y: Brock Murillo on 10-31-2024 Basophils/100 WBC (Bld) 1.0 % 0-1 [facility] Bilirubin Test strip Ql (U)O rdered By: Brock Murillo on 10-31-2024 Bilirubin Ql (U) Negative Negative [facility] Bilirubin, totalOrdered By: Brock Murillo on 10-31-2024 Bilirubin [Mass/Vol] 0.65 mg/dL 0.00-1.30 [facility] Brain/Head without Contrasto n 10-31-2024 Brain/Head without Contrast [facility] Services [address] [place] [address] Brain/Head without Contrast MR#: [id number] Acct: [id number] Name: STELLAMALVIN Ruslan Rep #: [id number] : 2000 M 24 From: Brenton Sifuentes MD PCP: Care Physician,No Primary Status: REG ER Study: Brain/Head without Contrast Date of Exam: 10/16 12/10 Exam# [id number] Ordering Dr: Brock Murillo DO EXAM: CT Head Without Intravenous Contrast CLINICAL INDICATION: SEIZURE TECHNIQUE: Axial computed tomography images of the head/brain without intravenous contrast. This CT exam was performed using one or more of the following dose reduction techniques: automated exposure control, adjustment of the mA and/or kV according to patient size, and/or use of iterative reconstruction technique. COMPARISON: No relevant prior studies available. FINDINGS: BRAIN AND EXTRA-AXIAL SPACES: No acute intracranial hemorrhage, midline shift or mass effect. If symptoms persist, further evaluation with MRI is recommended. No significant white matter disease. BONES/JOINTS: Unremarkable. No acute fracture. SOFT TISSUES: Unremarkable. SINUSES: Unremarkable as visualized. No acute sinusitis. MASTOID AIR CELLS: Unremarkable as visualized. No mastoid effusion. CT/Brain/Head without Contrast IMPRESSION: No acute intracranial hemorrhage, midline shift or mass effect. If symptoms persist, further evaluation with MRI is recommended. Reading Location: [facility] CC: Dr. Brock Murillo, ; No Primary Care Physician Equipment Service Engineer: Signed Normal [facility] CBC W/Diff, Automatedon 05 Absolute Lymph 2.95 X10 3/uL Normal 0.83-4.51 [facility] Comment on above: Performed By: #### L 100.0100 #### [facility] [address] [place], [address] Absolute Neut 5.8 X10 3/uL Normal 2.0-7.7 [facility] Comment on above: Performed By: #### L 100.0100 #### [facility] [address] [place], [address] Basophils/100 WBC (Bld) 1.0 % Normal 0-1 [facility] Comment on above: Performed By: #### L 100.0100 #### [facility] [address] [place], [address] Eosinophils/100 WBC (Bld) 1.0 % Normal 0-5 [facility] Comment on above: Performed By: #### L 100.0100 #### [facility] [address] [place], [address] Erythrocyte distribution width (RBC) [Ratio] 13.3 % Normal 11.6-14.6 [facility] Comment on above: Performed By: #### L 100.0100 #### [facility] [address] [place], [address] Hematocrit (Bld) [Volume fraction] 48.8 % Normal 40-54 [facility] Comment on above: Performed By: #### L 100.0100 #### [facility] [address] [place], [address] Hemoglobin (Bld) [Mass/Vol] 17.1 g/dL High 13.0-16.5 [facility] Comment on above: Performed By: #### L 100.0100 #### [facility] [address] [place], [address] IG% 0.600 Normal 0.0-0.9 [facility] Comment on above: Result Comment: IG% - Immature Granulocytes (promyelocytes, myelocytes and metamyelocytes) > 1% indicates that a LEFT SHIFT is Present. Performed By: #### L 100.0100 #### [facility] [address] [place], [address] Lymphocytes/100 WBC (Bld) 29.3 % Normal 19-41 [facility] Comment on above: Performed By: #### L 100.0100 #### [facility] [address] [place], [address] MCH (RBC) [Entitic mass] 29.2 pg Normal 27.0-32.0 [facility] Comment on above: Performed By: #### L 100.0100 #### [facility] [address] [place], [address] MCHC (RBC) [Mass/Vol] 35.0 g/dL Normal 32-36 [facility] Comment on above: Performed By: #### L 100.0100 #### [facility] [address] [place], [address] MCV (RBC) [Entitic vol] 83.3 fL Normal 80-94 [facility] Comment on above: Performed By: #### L 100.0100 #### [facility] [address] [place], [address] Monocytes/100 WBC (Bld) 10.2 % High 0-10 [facility] Comment on above: Performed By: #### L 100.0100 #### [facility] [address] [place], [address] Neutrophils/100 WBC (Bld) 57.9 % Normal 47-70 [facility] Comment on above: Performed By: #### L 100.0100 #### [facility] [address] [place], [address] Nucleated RBC (Bld) [#/Vol] 0 10*3/uL Normal 0-5 [facility] Comment on above: Performed By: #### L 100.0100 #### [facility] [address] [place], [address] Platelet mean volume (Bld) [Entitic vol] 9.9 fL Normal 6.2-12.0 [facility] Comment on above: Performed By: #### L 100.0100 #### [facility] [address] [place], [address] Platelets (Bld) [#/Vol] 362 10*3/uL Normal 150-450 [facility] Comment on above: Performed By: #### L 100.0100 #### [facility] [address] [place], [address] RBC (Bld) [#/Vol] 5.86 10*6/uL Normal 4.6-6.2 [facility] [facility] Comment on above: Performed By: #### L 100.0100 #### [facility] [address] [place], [address] RDW SD 39.6 fl Normal 35.1-43.9 [facility] Comment on above: Performed By: #### L 100.0100 #### [facility] [address] [place], [address] WBC (Bld) [#/Vol] 10.1 10*3/uL Normal 4.4-11.0 [facility] Comment on above: Performed By: #### L 100.0100 #### [facility] [address] [place], [address] Carbon dioxide, total [Moles /volume] in Central venous bloodOrdered By: Brock Murillo on 10-31-2024 CO2 [Moles/Vol] 18.2 mmol/L Low 21.0-32.0 [facility] Chest 1 View (Portable)on Chest 1 View (Portable) [facility] Imaging Services [address] [place] [address] Chest 1 View (Portable) MR#: [id number] Acct: [id number] Name: MALVIN DOUGLAS Rep #: [id number] : 2000 M 24 From: Ryan Green MD PCP: Care Physician,No Primary Status: [facility] ER Study: Chest 1 View (Portable) Date of Exam: 10/31/24 Exam# [id number] Ordering Dr: Brock Murillo DO PROCEDURE: CHEST 1 VIEW (PORTABLE) 10/31/2024 REASON FOR EXAM: SEIZURE RULE OUT PNEUMONIA TECHNIQUE: Frontal view of the chest. COMPARISON: None FINDINGS: Heart: The heart size is normal. Lungs: The lungs are clear. No pleural effusion. Bones: The bones are unremarkable. RAD/Chest 1 View (Portable) IMPRESSION: No acute cardiopulmonary abnormality. Reading Location: [id number] CC: Dr. Brock Chidi, DO; No Primary Care Physician Equipment Service Engineer: Signed Normal [facility] Chloride assayOrdered By: Rafael Murillo on 10-31-2024 Chloride [Moles/Vol] 100 mmol/L 98-108 [facility] Comprehensive Metabolic Prof ilon 10-31-2024 Albumin [Mass/Vol] 4.9 g/dL Normal 3.5-5.0 [facility] Comment on above: Performed By: #### L 500.4050, L500.2500, L503.6005 #### [facility] [address] [place], [address] Albumin/Globulin [Mass ratio] 1.6 {ratio} Normal 0.9-2.4 [facility] Comment on above: Performed By: #### L 500.4050, L500.2500, L503.6005 #### [facility] [address] [place], [address] ALK PHOS 74 U/L Normal 40-129 [facility] Comment on above: Performed By: #### L 500.4050, L500.2500, L503.6005 #### [facility] [address] [place], [address] ALT [Catalytic activity/Vol] 55 U/L High <=46 [facility] Comment on above: Performed By: #### L 500.4050, L500.2500, L503.6005 #### [facility] [address] [place], [address] AST [Catalytic activity/Vol] 37 U/L Normal <=37 [facility] Comment on above: Result Comment: Hemo lysis present, Results??could be affected. ?? Performed By: #### L 500.4050, L500.2500, L503.6005 #### [facility] [address] [place], [address] Bilirubin [Mass/Vol] 0.65 mg/dL Normal 0.00-1.30 [facility] Comment on above: Performed By: #### L 500.4050, L500.2500, L503.6005 #### [facility] [address] [place], [address] Globulin (S) [Mass/Vol] 3.0 g/dL Normal 2.2-4.2 [facility] Comment on above: Performed By: #### L 500.4050, L500.2500, L503.6005 #### [facility] [address] [place], [address] T PROT 8.0 g/dL Normal 5.9-8.4 [facility] Comment on above: Performed By: #### L 500.4050, L500.2500, L503.6005 #### [facility] [address] [place], [address] Emergency Department Summary on 10-31-2024 Emergency Department Summary [facility] Medical Records Department [address] [place] [address] Emergency Department Summary 10/31/24 MR#: [id number] Acct: [id number] Name: MALVIN DOUGLAS Rep #: [id number] : 2000 24 From: Brock Murillo DO PCP: Care Physician,No Primary Status:REG ER Location: ED ADDENDUM by Dr. Brock Murillo DO on 10/31/24 at 2309 Final disposition: Discharge home 10/31/24 230 Cosigner Signature (if applicable): cc: No Primary Care Physician * Signed HPI History of Present Illness Chief Complaint: Seizure PFSH PFSH Medical History no medical history Home Medications ???Medication ???Instructions ???Recorded ???Last Taken ???Type levetiracetam 500 mg tablet 500 mg PO BID #60 tabs 10/31/24 Un known Rx (Keppra) Allergy/AdvReac Type Severity Reaction Status Date / Time No Known Allergies Allergy Verified 10/31/24 19:48 Family History no significant family his Surgical History no surgical history Social History Smoking Status: Never smoker EXAM Physical Exam Const Vital Signs: 10/31/24 19:44 10/31/24 20:08 10/31/24 21:00 Temperature 99.2 F H Temperature Source Oral Pulse Rate 128 H 125 H 119 H Respiratory Rate 20 H 18 23 H Blood Pressure 134/81 H 120/83 H 130/82 H Blood Pressure Mean 98 95 98 Pulse Ox 97 97 97 Oxygen Delivery Method Room Air Room Air Room Air 10/31/24 21:18 10/31/24 22:00 Temperature 97.5 F L Temperature Source Oral Pulse Rate 113 H Respiratory Rate 22 H Blood Pressure 125/80 H Blood Pressure Mean 95 Pulse Ox 98 Oxygen Delivery Method Room Air MDM MDM MDM Narrative Medical decision making narrative: HISTORY OF PRESENT ILLNESS: Chief complaint: Seizure 24-year-old male with no past medical history presents with concern for new onset seizure. Notes 3- 5 minute history of seizure. He has no personal history of seizures. He noted he bit his tongue did not wet his pants. He was laying down when he started seizing. He was witnessed by his mother. She states the patient activity was similar to to another family member with seizures. The patient denies recent head trauma. Denies recent vomiting or diarrhea. Denies recent fever, neck stiffness or headache. Denies focal numbness weakness or loss of sensation. REVIEW OF SYSTEMS: Pertinent positives: Seizure Pertinent negatives: Fever, neck stiffness, vomiting, diarrhea, focal neurologic deficit PHYSICAL EXAM: Nursing triage notes reviewed, Vital signs reviewed Constitutional: please see mdm HENT: MMM, right lateral tongue biting noted Eyes: Pupils equal round and reactive to light, Extraocular muscles intact Neck: No stridor, no JVD, full neck ROM Lungs: Clear to auscultation, No wheezing or rales. No increased work of breathing, no conversational dyspnea, no accessory muscle use, no nasal flaring. No respiratory distress noted Heart: Regular rate and rhythm, No murmurs, No rubs and No gallops, 2+ distal pulses (radial, femoral, posterior tibial) in all extremities Abdomen: Soft, there is no tenderness, rigidity, rebound or guarding, no obvious peritoneal signs, no palpable pulsatile abdominal masses, no auscultated abdominal bruit : No CVAT Extremities: No edema Neuro: Alert, oriented x 3, no obvious cranial nerve deficits, no extremity ataxia, intact sensation and strength in bilateral upper and lower extremities. Skin: No rash or lesions noted MEDICAL DECISION MAKING: Chief Complaint: please see HPI External records reviewed: No prior imaging studies Factors affecting care: No personal history, family history of seizures Social determinants of health: n denies drug use History obtained from others: family Consults: Internal Medicine (Dr. Matthews) MDM Narrative: The patient was initially tachycardic, afebrile and nontoxic-appearing. Nasal neurologic exam was intact. The patient did not appear postictal. There was tongue biting noted. I considered the following differential diagnosis: Seizure, hyponatremia, hypoglycemia, meningitis The patient's history and physical exam are consistent with bilateral meningitis. No meningeal signs. Nontoxic-appearing. No severe neck stiffness or headache. ALL IMAGES (IF OBTAINED) HAVE BEEN PERSONALLY REVIEWED AND INTERPRETED BY MYSELF. I have personally reviewed the patient's chest x-ray. Chest x-ray is unremarkable for pulmonary edema, pneumothorax, pneumonia or focal cardiopulmonary abnormality. EKG with sinus tach heart rate 113, normal axis, normal intervals, no STEMI CMP with severe hypokalemia (hemolyzed), noted anion gap metabolic acidosis likely associated with elevated lactate in the setting of new onset seizure U (more content not included)... Normal [facility] Eosinophil percentageOrdered By: Brock Murillo on 10-31-2024 Eosinophils/100 WBC (Bld) 1.0 % 0-5 [facility] Erythrocyte distribution wid th ratioOrdered By: Brock Murillo on 10-31-2024 Erythrocyte distribution width (RBC) [Ratio] 13.3 % 11.6-14.6 [facility] Erythrocyte distribution wid th standard deviationOrdered By: Brock Murillo on 10-31-2024 Erythrocyte distribution width (RBC) [Ratio] 39.6 fl 35.1-43.9 [facility] Glomerular filtration rate ( GFR) estimation/1.73 sq m using serum, plasma, or whole bOrdered By: Brock Murillo on 10-31-2024 GFR/1.73 sq M.predicted among non-blacks MDRD (S/P/Bld) [Vol rate/Area] 101 mL/min/{1.73_m2} >60 [facility] Comment on above: mL/min/1.73m2 CKD-EP I Creatinine Equation (2020) Hematocrit Auto (Bld) [Volum e fraction]Ordered By: Brock Murillo on 10-31-2024 Hematocrit (Bld) [Volume fraction] 48.8 % 40-54 [facility] Hemoglobin measurementOrdere d By: Brock Murillo on 10-31-2024 Hemoglobin (Bld) [Mass/Vol] 17.1 g/dL High 13.0-16.5 [facility] Immature granulocytes/100 WB C Auto (Bld)Ordered By: Brock Murillo on 10-31-2024 Immature granulocytes/100 WBC (Bld) 0.600 % 0.0-0.9 [facility] Comment on above: IG% - Immature Granu locytes (promyelocytes, myelocytes and metamyelocytes) > 1% indicates that a LEFT SHIFT is Present. Ketones Test strip Ql (U)Ord ered By: Brock Murillo on 10-31-2024 Ketones Ql (U) Negative Negative [facility] - Chemistry and C hemistry - challengeOrdered By: Brock Murillo on 10-31-2024 AST [Catalytic activity/Vol] 37 U/L <38 [facility] Comment on above: Hemolysis present, R esults could be affected. Lactic Acidon 10-31-2024 Lactate [Moles/Vol] 2.5 mmol/L Invalid Interpretation Code 0.0-2.0 [facility] Comment on above: Order Comment: Y Result Comment: Crit ical Result(s) Called at: 2102 by:??SHILPA COTTER Results read back by same. Performed By: #### L 500.4050, L500.2500, L503.6005 #### [facility] [address] [place], [address] Lactic acid measurementOrder ed By: Brock Murillo on 10-31-2024 Lactate [Moles/Vol] 2.5 mmol/L High 0.0-2.0 [facility] Comment on above: Critical Result(s) C alled at: 2102 by: SHILPA COTTER Results read back by same. MCV (mean corpuscular volume ) determinationOrdered By: Brock Murillo on 10-31-2024 MCV (RBC) [Entitic vol] 83.3 fL 80-94 [facility] Magnesiumon 10-31-2024 Magnesium [Mass/Vol] 2.7 mg/dL High 1.5-2.2 [facility] Comment on above: Performed By: #### L 501.5200 ####[facility] [address] [place], [place], [id number] Magnesium measurement (mass/ volume)Ordered By: Brock Murillo on 10-31-2024 Magnesium (Unsp spec) [Mass/Vol] 2.7 mg/dL High 1.5-2.2 [facility] Mean corpuscular hemoglobin (MCH) determinationOrdered By: Brock Murillo on 10-31-2024 MCH (RBC) [Entitic mass] 29.2 pg 27.0-32.0 [facility] Mean corpuscular hemoglobin concentration (MCHC) determinationOrdered By: Brock Murillo on 10-31-2024 MCHC (RBC) [Mass/Vol] 35.0 g/dL 32-36 [facility] Mean platelet volume determi nationOrdered By: Brock Murillo on 10-31-2024 Platelet mean volume (Bld) [Entitic vol] 9.9 fL 6.2-12.0 [facility] Microscopic analysis of urin e for red blood cells (RBC)Ordered By: Brock Murillo on 10-31-2024 Microscopic analysis of urine for red blood cells (RBC) 0-5 SEEN /hpf 0-5 [facility] Monocyte percentageOrdered B y: Brock Murillo on 10-31-2024 Monocytes/100 WBC (Bld) 10.2 % High 0-10 [facility] Mucus LM Ql (Urine sed)Order ed By: Brock Murillo on 10-31-2024 Mucus Ql (Urine sed) 0 SEEN /hpf [facility] Neutrophil percentageOrdered By: Brock Murillo on 10-31-2024 Neutrophils/100 WBC (Bld) 57.9 % 47-70 [facility] Nitrite Test strip Ql (U)Ord ered By: Brock Murillo on 10-31-2024 Nitrite Ql (U) Negative Negative [facility] Nucleated red blood cell per centageOrdered By: Brock Murillo on 10-31-2024 Nucleated RBC/100 WBC (Bld) [Ratio] 0 % 0-5 [facility] Platelet countOrdered By: Rafael Murillo on 10-31-2024 Platelets (Bld) [#/Vol] 362 10*3/uL 150-450 [facility] Potassium measurement (mass/ volume)Ordered By: Brock Murillo on 10-31-2024 Potassium (Unsp spec) [Mass/Vol] 3.0 mmol/L Low 3.3-5.1 [facility] Comment on above: Hemolysis present, R esults could be affected. Protein Test strip Ql (U)Ord ered By: Brock Murillo on 10-31-2024 Protein Ql (U) 15 mg/dl High Negative [facility] RBC Auto (Bld) [#/Vol]Ordere d By: Brock Murillo on 10-31-2024 RBC (Bld) [#/Vol] 5.86 10*6/uL 4.6-6.2 [facility] Serum creatinine measurement (mass/volume)Ordered By: Brock Murillo on 10-31-2024 Creatinine [Mass/Vol] 1.06 mg/dL 0.70-1.20 [facility] Serum globulin measurementOr dered By: Brock Murillo on 10-31-2024 Globulin (S) [Mass/Vol] 3.0 g/dL 2.2-4.2 [facility] Serum glucose measurement (m ass/volume)Ordered By: Brock Murillo on 10-31-2024 Glucose [Mass/Vol] 91 mg/dL 70-99 [facility] Serum or plasma alanine dean otransferase (ALT) measurementOrdered By: Brock Murillo on 10-31-2024 ALT [Catalytic activity/Vol] 55 U/L High <47 [facility] Serum or plasma albumin prabha urement (mass/volume)Ordered By: Brock Murillo on 10-31-2024 Albumin [Mass/Vol] 4.9 g/dL 3.5-5.0 [facility] Serum or plasma albumin/glob ulin mass ratioOrdered By: Brock Murillo on 10-31-2024 Albumin/Globulin [Mass ratio] 1.6 {ratio} 0.9-2.4 [facility] Serum or plasma alkaline shannon sphatase measurementOrdered By: Brock Murillo on 10-31-2024 ALP [Catalytic activity/Vol] 74 U/L 40-129 [facility] Serum or plasma calcium prabha urement (mass/volume)Ordered By: Brock Murillo on 10-31-2024 Calcium [Mass/Vol] 9.8 mg/dL 7.6-11.0 [facility] Serum or plasma urea nitroge n measurement (mass/volume)Ordered By: Brock Murillo on 10-31-2024 Urea nitrogen [Mass/Vol] 17 mg/dL 4-19 [facility] Sodium levelOrdered By: Santana Murillo on 10-31-2024 Sodium [Moles/Vol] 139 mmol/L 133-145 [facility] Squamous epithelial cells de tection in urine sediment by light microscopyOrdered By: Brock Murillo on 10-31-2024 Epithelial cells.squamous LM Ql (Urine sed) 0-5 SEEN /hpf 0-5 [facility] Total proteinOrdered By: Courtney Murillo on 10-31-2024 Protein [Mass/Vol] 8.0 g/dL 5.9-8.4 [facility] Urinalysis, Completeon 10-31 EPI,SQUAMOUS 0-5 SEEN Normal 0-5 [facility] Comment on above: Order Comment: CLEAN CATCH Performed By: #### L 400.0001 ####[facility] [address] [place], [address] RBC 0-5 SEEN Normal 0-5 [facility] Comment on above: Order Comment: CLEAN CATCH Performed By: #### L 400.0001 ####[facility] [address] [place], [address] WBC 0-5 SEEN Normal 0-5 [facility] Comment on above: Order Comment: CLEAN CATCH Performed By: #### L 400.0001 ####[facility] [address] [place], [address] BACTERIA 0 SEEN Normal None Seen [facility] Comment on above: Order Comment: CLEAN CATCH Performed By: #### L 400.0001 ####[facility] [address] [place], [address] Mucus Ql (Urine sed) 0 SEEN Normal [facility] Comment on above: Order Comment: CLEAN CATCH Performed By: #### L 400.0001 ####[facility] [address] [place], [address] Urine clarityOrdered By: Courtney Murillo on 10-31-2024 Clarity (U) Clear Clear [facility] Urine color determinationOrd ered By: Brock Murillo on 10-31-2024 Color (U) Straw Yellow [facility] Urine glucose detectionOrder ed By: Brock Murillo on 10-31-2024 Glucose Ql (U) 250 mg/dl High Normal [facility] Urine leukocyte esterase det ection by dipstickOrdered By: Brock Murillo on 10-31-2024 Leukocyte esterase Test strip Ql (U) Negative Negative [facility] Urine pHOrdered By: Brock espinosa on 10-31-2024 pH (U) 6.0 [pH] 5.0 - 8.0 [facility] Urine sediment bacteria coun t by microscopy (number/high power field)Ordered By: Brock Murillo on 10-31-2024 Bacteria LM.HPF (Urine sed) [#/Area] 0 /[HPF] None Seen [facility] Urine specific gravity measu rementOrdered By: Brock Murillo on 10-31-2024 Specific gravity (U) [Rel density] 1.020 1.002-1.030 [facility] Urine urobilinogen measureme ntOrdered By: Brock Murillo on 10-31-2024 Urobilinogen Ql (U) Normal mg/dl Normal [facility] White blood cell (WBC) count Ordered By: Brock Murillo on 10-31-2024 WBC (Bld) [#/Vol] 10.1 10*3/uL 4.4-11.0 [facility] White blood cell countOrdere d By: Brock Murillo on 10-31-2024 White blood cell count 0-5 SEEN /hpf 0-5 [facility] Vital Signs Date Time Vital Sign Value Performing Clinician Deisy graham 12-24-2024 08:22-0400 Body height 167.[address] Brock Murillo DO Work Phone: [phone] [place] [address] 12-24-2024 08:22-0400 Body mass index (BMI) [Ratio] 26.4 kg/m2 Dr. Brock Murillo DO Work Phone: 2(993)560-731816 [place] [address] 12-24-2024 08:22-0400 Body temperature 98.6 [degF] Dr. Brock Murillo DO Work Phone: 8(335)588-761616 [place] [address] 12-24-2024 08:22-0400 Body weight 74.[address] Brock Murillo DO Work Phone: 0(910)[phone] [place] [address] 12-24-2024 08:22-0400 Diastolic blood pressure 79 mm[Hg] Dr. Brock Murillo DO Work Phone: 8(180)469-607423 [place] [address] 12-24-2024 08:22-0400 Heart rate 58 /min Dr. Brock Murillo DO Work Phone: 7(525)[phone] [place] [address] 12-24-2024 08:22-0400 Respiratory rate 15 /min Dr. Brock Murillo DO Work Phone: [phone])[phone] [place] [address] 12-24-2024 08:22-0400 SaO2% (BldA) [Mass fraction] 98 % Dr. Brock Murillo DO Work Phone: 0(076)[phone] [place] [address] 12-24-2024 08:22-0400 Systolic blood pressure 117 mm[Hg] Dr. Brock Murillo DO Work Phone: [phone])[phone] [place] [address] 11-01-2024 01:00-0400 Diastolic blood pressure 61 mm[Hg] Dr. Brock Murillo DO Work Phone: [facility] 11-01-2024 01:00-0400 Heart rate 77 /min Dr. Brock Murillo DO Work Phone: [facility] 11-01-2024 01:00-0400 Respiratory rate 18 /min Dr. Brock Murillo DO Work Phone: [facility] 11-01-2024 01:00-0400 SaO2% (BldA) [Mass fraction] 95 % Dr. Brock Murillo DO Work Phone: [facility] 11-01-2024 01:00-0400 Systolic blood pressure 106 mm[Hg] Dr. Brock Murillo DO Work Phone: [facility] 10-31-2024 23:16-0400 Body temperature 97.5 [degF] Dr. Brock Murillo DO Work Phone: [facility] 10-31-2024 19:44-0400 Body height 167.[address] Brock Murillo DO Work Phone: [facility] 10-31-2024 19:44-0400 Body mass index (BMI) [Ratio] 27.6 kg/m2 Dr. Brock Murillo DO Work Phone: [facility] 10-31-2024 19:44-0400 Body weight 77.[address] Brock Murillo DO Work Phone: [facility] Encounters Encounter Date Encounter Type Care Provider Facility Start: 02-02-2025 ambulatory Fabian Jung Facilit y:[facility] Start: 01-05-2025 End: 01-05-[address] Brock Murillo DO Work Phone: -Pulmonary Services/Neurology Start: 01-05-2025 End: 01-05-[address] Fabian Jung MD -Pulmonary Services/Neurology Work Phone: Start: 01-05-2025 End: 01-05-2025 ambulatory Fabian Jung Facility:[facility] Start: 12-24-2024 End: 12-24-[address] Brock Murillo DO Work Phone: -[facility] [place] Start: 12-24-2024 End: 12-24-[address] Fabian Jung MD -[facility] Work Phone: Start: 12-24-2024 End: 12-24-[address] Fabian Jung MD -[facility] Work Phone: Start: 12-24-2024 End: 12-24-[address] Brock Murillo DO Work Phone: -[facility] Start: 12-24-2024 End: 12-24-2024 ambulatory [facility] Facility:[facility] Start: 10-31-2024 End: 11-01-2024 Emergency department patient visit Dr. Brock Murillo DO Work Phone: -Emergency Department Work Phone: Procedures Date Procedure Procedure Detail Performing Clinician Start: 10-31-2024 Urnls dip stick/tabl et reagent auto microscopy Dr. Brock Murillo DO Work Phone: Start: 10-31-2024 Plain chest X-ray Dr. Shay Murillo DO Work Phone: Start: 10-31-2024 CT of head without contrast Dr. Brock Murillo DO Work Phone: Start: 10-31-[address] Brock Murillo DO Work Phone: Plan of Treatment Date Care Activity Detail Author Start: 01-05-2025 Electroencephalogram [facility] Start: 10-31-2024 [facility] Comprehensive metabo lic 2000 panel - Serum or Plasma [facility] Electroencephalogram [facility] MR Brain WO and W contrast IV [facility] Patient Education ED Seizure New UKO Adult [facility] Work Phone: Patient referral [facility] Work Phone: Payers Date Payer Category Payer Unknown [id number] 2024 Self-pay 2024 Unknown [id number] Unknown [id number] 2.16.8 [id number] Unknown [id number] 2.16.8 [id number] Unknown [id number] 2.16.8 [id number] Unknown [id number] 2.16.8 [id number] Unknown [id number] 2.16.8 [id number] Social History Date Type Detail Facility Start: 10-31-2024 Tobacco smoking stat [facility] Never smoked tobacco (finding) [facility] Start: 2000 Sex Assigned At Male [facility] Mental Status Date Assessment Result Facility 10-31-2024 Cognitive function Voice/Name [facility] Work Phone: Evaluation note 12-24-2024 Note Date & Type Note Facility 12-24-2024 Evaluation note Diagnosis Onset Date Resolution Epilepsy acute December 24, 2024 8:22am Seizure disorder noneactive December 8:22am [facility] Work Phone: Discharge summary 11-01-2024 Note Date & Type Note Facility 11-01-2024 Discharge summary Note Date/Time October 31, 2024 11:09pm [facility] Medical Records Department [address] [place] [address] Emergency Department Summary 10/31/24 MR#: [id number] Acct: [id number] Name: MALVIN DOUGLAS Rep #:[id number] : 2000 24 From: Brock Mariscal PCP: Care Physician,No Primary Status :REG ER Location: ED ADDENDUM by Dr. Brock Murillo DO on 10/31/24 at 2309 Final disposition: Discharge home 05/16/25 2309<Electronically signed by Brock Murillo DO> Cosigner Signature (if applicable): cc: No Primary Care Physician ~* Signed HPI History of Present Illness Chief Complaint: Seizure PFSH PFSH Medical History no medical history Home Medications ?Medication ?Instructions ?Recorded ?Last Taken ?Type levetiracetam 500 mg tablet 500 mg PO BID #60 tabs Unknown Rx (Keppra) Allergy/AdvReac Type Severity Reaction Status Date / Time No Known Allergies Allergy Verified 10/31/24 19:48 Family History no significant family his Surgical History no surgical history Social History Smoking Status: Never smoker EXAM Physical Exam Const Vital Signs: 10/31/24 19:44 10/31/24 20:08 10/31/24 21:00 Temperature 99.2 F H Temperature Source Oral Pulse Rate 128 H 125 H 119 H Respiratory Rate 20 H 18 23 H Blood Pressure 134/81 H 120/83 H 130/82 H Blood Pressure Mean 98 95 98 Pulse Ox 97 97 97 Oxygen Delivery Method Room Air Room Air Room Air 10/31/24 21:18 10/31/24 22:00 Temperature 97.5 F L Temperature Source Oral Pulse Rate 113 H Respiratory Rate 22 H Blood Pressure 125/80 H Blood Pressure Mean 95 Pulse Ox 98 Oxygen Delivery Method Room Air MDM MDM MDM Narrative Medical decision making narrative: HISTORY OF PRESENT ILLNESS: Chief complaint: Seizure 24-year-old male with no past medical history presents with concern for new onset seizure. Notes 3-5 minute history of seizure. He has no personal historyof seizures. He noted he bit his tongue did not wet his pants. He was laying down when he started seizing. He was witnessed by his mother. She states the patient activity was similar to to another family member with seizures. The patient denies recent head trauma. Denies recent vomiting or diarrhea. Denies recent fever, neck stiffness or headache. Denies focal numbness weakness or loss of sensation. REVIEW OF SYSTEMS: Pertinent positives: Seizure Pertinent negatives: Fever, neck stiffness, vomiting, diarrhea, focal neurologicdeficit PHYSICAL EXAM: Nursing triage notes reviewed, Vital signs reviewed Constitutional: please see mdm HENT: MMM, right lateral tongue biting noted Eyes: Pupils equal round and reactive to light, Extraocular muscles intact Neck: No stridor, no JVD, full neck ROM Lungs: Clear to auscultation, No wheezing or rales. No increased work of breathing, no conversational dyspnea, no accessory muscle use, no nasal flaring. No respiratory distress noted Heart: Regular rate and rhythm, No murmurs, No rubs and No gallops, 2+ distal pulses (radial, femoral, posterior tibial) in all extremities Abdomen: Soft, there is no tenderness, rigidity, rebound or guarding, no obviousperitoneal signs, no palpable pulsatile abdominal masses, no auscultated abdominal bruit : No CVAT Extremities: No edema Neuro: Alert, oriented x 3, no obvious cranial nerve deficits, no extremity ataxia, intact sensation and strength in bilateral upper and lower extremities. Skin: No rash or lesions noted MEDICAL DECISION MAKING: Chief Complaint: please see HPI External records reviewed: No prior imaging studies Factors affecting care: No personal history, family history of seizures Social determinants of health: n denies drug use History obtained from others: family Consults: Internal Medicine (Dr. Matthews) MDM Narrative: The patient was initially tachycardic, afebrile and nontoxic-appearing. Nasal neurologic exam was intact. The patient did not appear postictal. There was tongue biting noted. I considered the following differential diagnosis: Seizure, hyponatremia, hypoglycemia, meningitis The patient's history and physical exam are consistent with bilateral meningitis. No meningeal signs. Nontoxic-appearing. No severe neck stiffness or headache. ALL IMAGES (IF OBTAINED) HAVE BEEN PERSONALLY REVIEWED AND INTERPRETED BY MYSELF. I have personally reviewed the patient's chest x-ray. Chest x-ray is unremarkable for pulmonary edema, pneumothorax, pneumonia or focal cardiopulmonary abnormality. EKG with sinus tach heart rate 113, normal axis, normal intervals, no STEMI CMP with severe hypokalemia (hemolyzed), noted anion gap metabolic acidosis likely associated with elevated lactate in the setting of new onset seizure Urinalysis shows no evidence of urinary inflammation suggestive of UTI CBC without leukocytosis, severe anemia, no thrombocytopenia. Urinalysis shows no evidence of urinary inflammation suggestive of UTI CT scan of the brain shows no evidence of ICH or mass Lactate elevated consistent with endorgan hypoperfusion likely secondary to seizure. Magnesium slightly elevated The synthesis of the patient history, physical exam, labs image suggest likely new onset seizure. The patient received a dose of IV Keppra here. Potassium was repleted with 60 mEq oral potassium and 20 mEq of IV potassium. Shared decision-making discussion was undertaken with the patient we do not have[facility] for [facility] given lack of resources patient will need to be transferred to a larger institution that was abetter resourced. After discussing transfer the patient and family were both alert and oriented and had capacity to make her medical decisions chose to forego admission/transfer at this time and lieu of starting antiepileptic therapy with Keppra and close outpatient follow-up. Patient was signed out to p.m. physician pending potassium infusion, Keppra infusion and discharge. Keppra was written to [facility] pharmacy for meds to beds. The patient and/or family, caregivers express understanding. The patient and/orfamily, caregivers agrees with the plan. Shared decision making: I will have a discussion with the patient and or visitors regarding risk/benefits of further testing or admission. They will be made aware of of the risk/benefits inherent in this decision they will be given the opportunity to voice understanding. Total critical care time today provided was at least 0 minutes. This excludes separately billable procedures. Critical care time (if documented) is secondary to the patient having high probability of clinically significant/life threatening deterioration in the patient's condition which required my urgent intervention. Impression: 1. New onset seizure 2. Tachycardia 3. Hypokalemia Dispo: Admit to medicine This note was generated with [employer] dictation software. It may contain incorrectwords, spelling, and punctuation that were not noted in review of the chart prior to signing. Lab Data Labs: Laboratory Results - last 24 hr 10/31/24 10/31/24 10/31/24 19:45 20:20 20:23 WBC 10.1 RBC 5.86 Hgb 17.1 H Hct 48.8 MCV 83.3 MCH 29.2 MCHC 35.0 RDW Std Deviation 39.6 RDW Coeff of Indira 13.3 Plt Count 362 MPV 9.9 Immature Gran % (Auto) 0.600 Neut % (Auto) 57.9 Lymph % (Auto) 29.3 [place] % (Auto) 10.2 H Eos % (Auto) 1.0 Baso % (Auto) 1.0 Absolute Neuts (auto) 5.8 Absolute Lymphs (auto) 2.95 Nucleated RBC % 0 Sodium 139 Potassium 3.0 L Chloride 100 Carbon Dioxide 18.2 L Anion Gap 21 H BUN 17 Creatinine 1.06 Estim Creat Clear Calc 106.39 Est GFR (MDRD) Non-Af 101 BUN/Creatinine Ratio 15.8 Glucose 91 Lactic Acid 2.5 H* Calcium 9.8 Magnesium 2.7 H Total Bilirubin 0.65 AST 37 ALT 55 H Alkaline Phosphatase 74 Total Protein 8.0 Albumin 4.9 Globulin 3.0 Albumin/Globulin Ratio 1.6 Urine Color Urine Clarity Urine pH Ur Specific [place] Urine Protein Urine Glucose (UA) Urine Ketones Urine Occult Blood Urine Nitrite Urine Bilirubin Urine Urobilinogen Ur Leukocyte Esterase Urine RBC Urine WBC Ur Squamous Epith Cells Urine Bacteria Urine Mucus 10/31/24 20:45 WBC RBC Hgb Hct MCV MCH MCHC RDW Std Deviation RDW Coeff of Indira Plt Count MPV Immature Gran % (Auto) Neut % (Auto) Lymph % (Auto) [place] % (Auto) Eos % (Auto) Baso % (Auto) Absolute Neuts (auto) Absolute Lymphs (auto) Nucleated RBC % Sodium Potassium Chloride Carbon Dioxide Anion Gap BUN Creatinine Estim Creat Clear Calc Est GFR (MDRD) Non-Af BUN/Creatinine Ratio Glucose Lactic Acid Calcium Magnesium Total Bilirubin AST ALT Alkaline Phosphatase Total Protein Albumin Globulin Albumin/Globulin Ratio Urine Color Straw Urine Clarity Clear Urine pH 6.0 Ur Specific [place] 1.020 Urine Protein 15 H Urine Glucose (UA) 250 H Urine Ketones Negative Urine Occult Blood Negative Urine Nitrite Negative Urine Bilirubin Negative Urine Urobilinogen Normal Ur Leukocyte Esterase Negative Urine RBC 0-5 SEEN Urine WBC 0-5 SEEN Ur Squamous Epith Cells 0-5 SEEN Urine Bacteria 0 SEEN Urine Mucus 0 SEEN Radiography Diagnostic Testing: Clinical Impression(s) from Imaging Studies Brain CT 10/31/24 20:25 IMPRESSION: No acute intracranial hemorrhage, midline shift or mass effect. If symptoms persist, further evaluation with MRI is recommended. Reading Location: [id number] Chest X-Ray 10/31/24 20:30 IMPRESSION: No acute cardiopulmonary abnormality. Reading Location: [id number] Discharge Plan Triage Chief Complaint: Seizure ED Provider: Brock Murillo Dx/Rx/DC Orders Clinical Impression: New onset seizure Instructions: ED Seizure New UKO Adult Prescriptions: New levetiracetam [Keppra] 500 mg tablet 500 mg PO BID Qty: 60 3RF Primary Care Provider: Care Physician,No Primary Referrals: Fabian Jung MD [Non-Staff -Ordering Privileges] - Activity Restrictions/Additional Instructions: Thank you for trusting us with your care today! Your presentation is likely secondary to a new onset seizure. Please take Keppra as prescribed. Please not drive, operate heavy machinery, swim or climb as a seizure during these activities can be fatal. Please take Tylenol (2 pills, 650 mg), ibuprofen (2 pills, 400 mg) every 6 hoursas needed for pain and fever control. Please return to the emergency department if your symptoms change or worsen. Specifically if you have a seizure lasting greater than 5 minutes or if you havemultiple seizures without return to your neurologic baseline (awake, alert, oriented to person place and time) Please follow with Neurology for further outpatient evaluation and management. Print Language: Spanish Disposition Disposition: Home, Self Care What to do if you have Problems For any increased pain, shortness of breath, bleeding, nausea or vomiting, chestpain, or any unexpected problems, contact your Primary Care Provider. Call [facility] ([phone]) or report to the closest Emergency Room. Call 911 if necessary. 10/31/24 <Electronically signed by Brock Murillo DO> Cosigner Signature (if applicable): CC: No Primary Care Physician ~ Signed [facility] Work Phone: Discharge summary 10-31-2024 Note Date & Type Note Facility 10-31-2024 Discharge summary [facility] Radiology Diagnostic study note 10-31-2024 Note Date & Type Note Facility 10-31-2024 Radiology Diagnostic study note [facility] Imaging Services [address] [place] [address] Brain/Head without Contrast MR#: [id number] Acct: [id number] Name: MALVIN DOUGLAS Rep #: [id number] : 2000 M 24 From: Hazel Sifuentes MD PCP: Care Physician,No Primary Status: REG ER Study:Brain/Head without Contrast Date of Exa m: 10/31/24 Exam# [id number] Ordering Dr: Shay Murillo DO EXAM: CT Head Without Intravenous Contrast CLINICAL INDICATION: SEIZURE TECHNIQUE: Axial computed tomography images of the head/brain without intravenous contrast. This CT exam was performed using one or more of the following dose reduction techniques: automated exposure control, adjustment of the mA and/or kV according to patient size, and/or use of iterative reconstruction technique. COMPARISON: No relevant prior studies available. FINDINGS: BRAIN AND EXTRA-AXIAL SPACES: No acute intracranial hemorrhage, midline shift or mass effect. If symptoms persist, further evaluation with MRI is recommended. No significant white matter disease. BONES/JOINTS: Unremarkable. No acute fracture. SOFT TISSUES: Unremarkable. SINUSES: Unremarkable as visualized. No acute sinusitis. MASTOID AIR CELLS: Unremarkable as visualized. No mastoid effusion. CT/Brain/Head without Contrast IMPRESSION: No acute intracranial hemorrhage, midline shift or mass effect. If symptoms persist, further evaluation with MRI is recommended. Reading Location: [id number] CC: Dr. Brock Murillo DO; No Primary Care Physician ~ Equipment Service Engineer: Signed [facility] Radiology Diagnostic study note 10-31-2024 Note Date & Type Note Facility 10-31-2024 Radiology Diagnostic study note [facility] Imaging Services [address] [place], [place] [id number] Chest 1 View (Portable) MR#: [id number] Acct: [id number] Name: MALVIN DOUGLAS Ruslan Rep #: [id number] : 2000 M 24 From: Riddhi Green MD PCP: Care Physician,No Primary Status: REG ER Study:Chest 1 View (Portable) Date of Exam: 10/31/24 Exam# [id number] Ordering Dr: Shay Murillo DO PROCEDURE: CHEST 1 VIEW (PORTABLE) 10/31/2024 REASON FOR EXAM: SEIZURE RULE OUT PNEUMONIA TECHNIQUE: Frontal view of the chest. COMPARISON: None FINDINGS: Heart: The heart size is normal. Lungs: The lungs are clear. No pleural effusion. Bones: The bones are unremarkable. RAD/Chest 1 View (Portable) IMPRESSION: No acute cardiopulmonary abnormality. Reading Location: [facility] CC: Dr. Brock Murillo, DO; No Primary Care Physician ~ Equipment Service Engineer: Signed [facility] Evaluation note Note Date & Type Note Facility Evaluation note No assessment information availa ble [facility] Work Phone: Evaluation note Note Date & Type Note Facility Evaluation note Diagnosis Onset Date Resolution Epilepsy acute December 24, 2024 8:22am Seizure disorder noneactive December 8:22am [facility] Work Phone: Hospital Discharge instructions Note Date & Type Note Facility Hospital Discharge instructions Additional Instructions Thank you for trusting us with your care today! Your presentation is likely secondary to a new onset seizure. Please take Keppra as prescribed. Please not drive, operate heavy machinery, swim or climb as a seizure during these activities can be fatal. Please take Tylenol (2 pills, 650 mg), ibuprofen (2 pills, 400 mg) every 6 hours as needed for pain and fever control. Please return to the emergency department if your symptoms change or worsen. Specifically if you have a seizure lasting greater than 5 minutes or if you have multiple seizures without return to your neurologic baseline (awake, alert, oriented to person place and time) Please follow with Neurology for further outpatient evaluation and management. [facility] Work Phone: Reason for referral (narrative) Note Date & Type Note Facility Reason for referral (narrative) No reason for referral information available [facility] Work Phone: Chief Complaint and Reason for Visit Chief Complaint Admit Date SEIZURE October 31, 2024 7:42p m Seizure December 24, 2024 8:22a m EORDERS December 24, 2024 9:30a m Reason for Visit Admit Date Epilepsy December 24, 2024 8:22a m Seizure disorder December 24, 2024 8:22a m Chief Complaint Admit Date SEIZURE October 31, 2024 7:42p m Chief Complaint Admit Date SEIZURE October 31, 2024 7:42p m Seizure December 24, 2024 8:22a m Chief Complaint Admit Date SEIZURE May 16th, 2025 7:42p m Seizure December 24, 2024 8:22a m EORDERS December 24, 2024 9:30a m G40.909 - Epilepsy, unspecified, not int ractable, January 05, 2025 7:59am Advance Directives No Advanced Directives Records Found Advance Directive Response Recorded Date/ Time Do you have a Healthcare Power of Finish Production Manager? No October 31, 2024 7:48pm Summary Purpose Family History No Family History Records Found Additional Source Comments Care Teams (unrecognized sec tion and content) Team Status: Active Member Role Status Dates No Primary Care Physician Primary Care Provider Active Team Status: Inactive Member Role Status Dates Dr. Brock Murillo DO Emergency Provider Active Start: October 31, 2024 End: November 01, 2024 No Primary Care Physician Primary Care Provider Active Start: October 31, 2024 End: November 01, 2024 Team Status: Active Member Role/Relationship Status Dates No Primary Care Physician Primary Care Provider Active Team Status: Inactive Member Role/Relationship Status Dates Dr. Brock Murillo DO Attending Provider Active Start: October 31, 2024 End: November 01, 2024 Dr. Brock Murillo DO Emergency Provider Active Start: October 31, 2024 End: November 01, 2024 No Primary Care Physician Primary Care Provider Active Start: October 31, 2024 End: November 01, 2024 Team Status: Inactive Member Role/Relationship Status Dates No Primary Care Physician Primary Care Provider Active Start: December 24, 2024 End: December 24, 2024 No Primary Care Physician Referring Provider Active Start: December 24, 2024 End: December 24, 2024 Dr. Fabian Jung MD Attending Provider Active Start: December 24, 2024 End: December 24, 2024 Team Status: Inactive Member Role/Relationship Status Dates No Primary Care Physician Primary Care Provider Active Start: December 24, 2024 End: December 24, 2024 Dr. Fabian Jung MD Attending Provider Active Start: December 24, 2024 End: December 24, 2024 Dr. Fabian Jung MD Referring Provider Active Start: December 24, 2024 End: December 24, 2024 Team Status: Inactive Member Role/Relationship Status Dates No Primary Care Physician Primary Care Provider Active Start: January 05, 2025 End: January 05, 2025 Dr. Fabian Jung MD Attending Provider Active Start: January 05, 2025 End: January 05, 2025 Dr. Fabian Jung MD Referring Provider Active Start: January 05, 2025 End: January 05, 2025 Goals (unrecognized section and content) Goals may be documented in a n alternate sectionGoals may be documented in an alternate sectionGoals may be documented in an alternate sectionGoals may be documented in an alternate section (unrecognized sect ion and content) No Status Records Found INFORMATION SOURCE (unrecogn ized section and content) DATE CREATED AUTHOR 01/30/2025 [facility] FOR RECORDS PERTAINING TO PATIENTS WHO ARE OR HAVE BEEN ENROLLED IN A CHEMICAL DEPENDENCY/SUBSTANCEABUSE PROGRAM, SOME INFORMATION MAY BE OMITTED. This clinical summary was aggregated from multiple sources. Caution should be exercised in using it in the provision of clinical care. This summary normalizes information from multiple sources, and as a consequence, information in this document may materially change the coding, format and clinical context of patient data. In addition, data may be omitted in some cases. CLINICAL DECISIONS SHOULD BE BASED ON THE PRIMARY CLINICAL RECORDS. [employer] provides no warranty or guarantee of the accuracy or completeness of information in this document.
== END | disposition home or self-care (01) ==
PROVIDERS: Referring Provider Psychiatry & Neurology Neurology; Visit Provider Psychiatry & Neurology Neurology
DX: G40.909 Epilepsy, unspecified, not intractable, without status epilepticus (principal)
CPT/HCPCS: 70553; A9575

== ENCOUNTER → 2025-04-09 | Outpatient (CLI) | payer OTHER, SELFPAY ==
[2025-04-13 16:09] LABS: KEPPRA (LEVETIRACETAM) 8.1 ug/mL (10.0-40.0)
== END | disposition home or self-care (01) ==
LOC: MTLAB 14:54
PROVIDERS: Referring Provider Psychiatry & Neurology Neurology; Visit Provider Psychiatry & Neurology Neurology
DX: G40.909 Epilepsy, unspecified, not intractable, without status epilepticus (principal)
CPT/HCPCS: 36415; 80177